=== PATIENT | female | born 1955 | race Caucasian/White ===

== ENCOUNTER → 2017-01-09 | Outpatient (CLI) | payer OTHER ==
--- NOTE | 2017-01-10 09:22 | RAD ---
DATE: 01/09/2017 EXAM: DIGITAL SCREEN BILAT W/CAD HISTORY: Routine screening COMPARISON: 11/28/2015, 03/29/2009 This study was interpreted with the benefit of Computerized Aided Detection (CAD). The breast parenchyma is primarily fatty replaced. Breast parenchyma level density A. FINDINGS: No new or enlarging breast densities are seen. Benign type calcifications are present in both breasts. Two 15 mm lymph nodes are noted in the left axillary region. There appear unchanged since 11/28/2015, although they have enlarged since 03/29/2009. IMPRESSION: There is no mammographic evidence of malignancy in either breast. BI-RADS CATEGORY: 2 BENIGN FINDING(S) RECOMMENDED FOLLOW-UP: 12M 12 MONTH FOLLOW-UP PQRS compliance statement: Patient information was entered into a reminder system with a target due date for the next mammogram. Mammography is a sensitive method for finding small breast cancers, but it does not detect them all and is not a substitute for careful clinical examination. A negative mammogram does not negate a clinically suspicious finding and should not result in delay in biopsying a clinically suspicious abnormality. "Our facility is accredited by the [employer] Mammography [employer]."
== END | disposition home or self-care (01) ==
LOC: MAMMO 14:48
PROVIDERS: ATTEND Family Medicine
DX: Z12.31 Encounter for screening mammogram for malignant neoplasm of breast (principal)
CPT/HCPCS: G0202; 77067

== ENCOUNTER → 2017-08-28 | Day surgery (SDC) | payer OTHER ==
[~2017-08-28] MED LIST: HYDROmorphone 2 MG/ML VIAL IV; LIDOCAINE 1% PF 2 ML VIAL. ID; LIDOCAINE 2% 100 MG/5 ML SYRINGE.; MORPHINE SULFATE 2 MG/ML DISP.SYRIN. IV; ONDANSETRON PF 4 MG/2 ML VIAL. IV; PROCHLORPERAZINE 10 MG/2 ML VIAL. IV; PROPOFOL 40 ML IV; fentaNYL PF VIAL 100 MCG/2 ML VIAL IV
[2017-08-28] MEDS: IV RINGERS,LACTATED 1000ML 1,000 ML IV (09:23)
== END | disposition home or self-care (01) ==
LOC: ENDOS 08:49
DX: K57.30 Diverticulosis of large intestine without perforation or abscess without bleeding (principal); K64.8 Other hemorrhoids; I10 Essential (primary) hypertension; J45.909 Unspecified asthma, uncomplicated; E78.5 Hyperlipidemia, unspecified; F41.8 Other specified anxiety disorders; F32.89 Other specified depressive episodes; M19.90 Unspecified osteoarthritis, unspecified site; Z79.899 Other long term (current) drug therapy; F17.210 Nicotine dependence, cigarettes, uncomplicated; Z90.49 Acquired absence of other specified parts of digestive tract; Z98.890 Other specified postprocedural states
CPT/HCPCS: 45378; J2704

== ENCOUNTER → 2018-03-17 | Outpatient (CLI) | payer OTHER ==
[2017-08-28 10:07] VITALS: BP 113/78
[~2018-03-17] MED LIST changes: +ARIP5TAB13 PO; +ATOR40TA59 PO; +CELE200C PO; +CLON0.5T11 PO; +CYAN10002 IM; +ELUX75TA PO; +ESTR1TAB5 PO; +ESZO3TAB28 PO; +FLUT1DIS IH; +FURO40TA4 PO; +HYDR-971 PO; -HYDROmorphone 2 MG/ML VIAL IV; -LIDOCAINE 1% PF 2 ML VIAL. ID; -LIDOCAINE 2% 100 MG/5 ML SYRINGE.; +MOME17SP NS; +MONT10TA9 PO; -MORPHINE SULFATE 2 MG/ML DISP.SYRIN. IV; +OMEP20TA8 PO; -ONDANSETRON PF 4 MG/2 ML VIAL. IV; +OXYB15TA PO; +POTA10TA12 PO; +PREG75CA PO; -PROCHLORPERAZINE 10 MG/2 ML VIAL. IV; -PROPOFOL 40 ML IV; +TOPI100T42 PO; -fentaNYL PF VIAL 100 MCG/2 ML VIAL IV
--- NOTE | 2018-03-18 09:10 | RAD ---
History: Routine Screening. Technique: Bilateral digital mammographic routine views were obtained with CAD - computer aided detection. Comparison: 05/29/2011, 11/28/2015, 01/09/2017. Findings: Breast Tissue Density A : The breast tissue is predominately fatty replaced. There are no suspicious masses, microcalcifications or areas of architectural distortion. Impression: Negative mammogram. BI-RADS Category 1: Negative. Recommendation: In the absence of new clinical symptoms or change in physical exam, annual screening mammography is recommended. A mammogram does not have 100% sensitivity and therefore a negative imaging study should not delay further work up of a suspicious abnormality. The patient will receive a letter with the results in the mail. Patient information is entered into the reminder system with a target due date for the next screening mammogram. The patient will receive a reminder. "Our facility is accredited by the [employer]."
== END | disposition home or self-care (01) ==
LOC: MAMMO 12:46
PROVIDERS: ATTEND Family Medicine
DX: Z12.31 Encounter for screening mammogram for malignant neoplasm of breast (principal); I10 Essential (primary) hypertension; E78.5 Hyperlipidemia, unspecified; Z87.891 Personal history of nicotine dependence
CPT/HCPCS: 77067

== ENCOUNTER → 2018-08-26 | Outpatient (CLI) | payer OTHER ==
[2017-08-28 10:07] VITALS: BP 113/78
[~2018-08-26] MED LIST changes: +HYDR-3164 PO; -HYDR-971 PO
[2018-08-26 16:09] LABS: BASO # 0.2 x10^3/uL (0.0-0.2); BASO % 1 % (0-3); EOS # 0.9 x10^3/uL (0.0-0.7); EOS % 6 % (0-3); HEMATOCRIT 45.3 % (36.0-47.0); HEMOGLOBIN 15.5 g/dL (12.0-15.5); LYMPH % 20 % (24-48); MEAN CORPUSCULAR HEMOGLOBIN 33 pg (25-35); MEAN CORPUSCULAR HGB CONC 34 g/dL (31-37); MEAN CORPUSCULAR VOLUME 97 fL (79-100); MONO # 0.8 x10^3/uL (0.0-1.1); MONO % 5 % (0-9); NEUT % 68 % (31-73); PLATELET COUNT 191 x10^3/uL (140-400); RED CELL DISTRIBUTION WIDTH 13.3 % (11.5-14.5); WHITE BLOOD COUNT 14.8 x10^3/uL (4.0-11.0)
[2018-08-26 16:38] LABS: ALBUMIN 3.5 g/dL (3.4-5.0); ALBUMIN/GLOBULIN RATIO 0.9 (1.0-1.7); GFR 56.4; POTASSIUM 4.1 mmol/L (3.5-5.1); TOTAL BILIRUBIN 0.2 mg/dL (0.2-1.0); TOTAL PROTEIN 7.4 g/dL (6.4-8.2)
[2018-08-26 16:40] LABS: BARBITURATES NEG (NEG); BENZODIAZEPINES NEG (NEG); CANNABINOIDS NEG (NEG); COCAINE NEG (NEG); METHADONE NEG (NEG); OPIATES POS (NEG); PHENCYCLIDINE NEG (NEG)
[2018-08-26 16:41] LABS: AMPHETAMINE/METHAMPHETAMINE NEG (NEG)
== END | disposition home or self-care (01) ==
LOC: LAB 15:41
PROVIDERS: ATTEND Psychiatry & Neurology Neurology
DX: R47.81 Slurred speech (principal)
CPT/HCPCS: 36415; 80053; 80307; 82607; 84443; 85025; 86038

== ENCOUNTER → 2018-09-10 | Outpatient (CLI) | payer OTHER ==
[2017-08-28 10:07] VITALS: BP 113/78
--- NOTE | 2018-09-16 19:18 | EEG ---
DATE OF SERVICE: 09/10/2018 EEG NUMBER: [id number]. OBJECTIVE: This is a 63-year-old female patient with episodes of slurred speech or seizure-like episodes. EEG was requested to help rule out seizure. METHODS: Twenty electrodes were applied according to the international 10-20 electrode placement system. EKG monitoring, hyperventilation, intermittent photic stimulation, monopolar and bipolar montages are routinely utilized. The record was obtained on a digital system with video monitoring. FINDINGS: 1. Background: The patient was recorded in awake, drowsy and sleep states. The overall background amplitude is 10-20 microvolts. A posterior dominant rhythm of 8-11 Hz is observed. 2. Abnormalities: No specific epileptiform discharge or electrographic seizure is seen. No focal or diffuse slowing. 3. Activation: Hyperventilation was performed with poor efforts. Intermittent photic stimulation was performed with photic driving. No specific epileptiform discharge or electrographic seizure induced by hyperventilation or intermittent photic stimulation. IMPRESSION: This EEG is within the broad normal limits of the study for the awake, drowsy, and sleep states. No focal, lateralizing, specific epileptiform discharge or electrographic seizure is seen. PATO SANCHEZ MD DR: KATHLEEN/simi JOB#: [id number] / [id number] DIAN
== END | disposition home or self-care (01) ==
LOC: RT 10:22
PROVIDERS: ATTEND Psychiatry & Neurology Neurology
DX: R47.81 Slurred speech (principal)
CPT/HCPCS: 95816

== ENCOUNTER 2018-11-10 16:17 | Emergency (ER) | payer OTHER ==
[~2018-11-10] VITALS: Ht 167.6 cm; Wt 117.9 kg
[2018-11-10] MEDS ORDERED: IV NORMAL SALINE 1000ML BAG 1,000 ML IV ONE (16:30)
[2018-11-10] MEDS ORDERED: methylPREDNISolone SOD SUCC PF 125 MG/2 ML VIAL. IV ONE (16:30)
[2018-11-10] MEDS ORDERED: IPRATRPIUM/ALBUTEROL 0.5/2.5MG 3 ML NEBU. NEB ONE (16:30)
[2018-11-10] MEDS ORDERED: NALOXONE 0.4 MG/ML VIAL. ONE (16:36)
[2018-11-10 16:41] LABS: BASO # 0.1 x10^3/uL (0.0-0.2); BASO % 1 % (0-3); EOS # 0.4 x10^3/uL (0.0-0.7); EOS % 5 % (0-3); HEMATOCRIT 44.3 % (36.0-47.0); HEMOGLOBIN 14.4 g/dL (12.0-15.5); LYMPH # 2.3 x10^3/uL (1.0-4.8); LYMPH % 27 % (24-48); MEAN CORPUSCULAR HEMOGLOBIN 32 pg (25-35); MEAN CORPUSCULAR HGB CONC 33 g/dL (31-37); MEAN CORPUSCULAR VOLUME 98 fL (79-100); MONO # 0.7 x10^3/uL (0.0-1.1); MONO % 8 % (0-9); NEUT % 59 % (31-73); PLATELET COUNT 190 x10^3/uL (140-400); RED BLOOD COUNT 4.54 x10^6/uL (3.50-5.40); WHITE BLOOD COUNT 8.5 x10^3/uL (4.0-11.0)
[2018-11-10] MEDS ORDERED: NALOXONE 0.4 MG/ML VIAL. IV ONE (16:45)
[2018-11-10 16:57] LABS: CALCIUM 8.5 mg/dL (8.5-10.1); CREATININE 1.1 mg/dL (0.6-1.0); GFR 50.5; POTASSIUM 3.6 mmol/L (3.5-5.1)
[2018-11-10 17:09] LABS: ALBUMIN 3.1 g/dL (3.4-5.0); ALBUMIN/GLOBULIN RATIO 0.9 (1.0-1.7); TOTAL BILIRUBIN 0.3 mg/dL (0.2-1.0); TOTAL PROTEIN 6.6 g/dL (6.4-8.2)
[2018-11-10 17:22] VITALS: BP 111/69
[2018-11-10] MEDS ORDERED: cefTRIAXone IV Push 1 GM VIAL. IVP ONE (17:30)
--- NOTE | 2018-11-10 17:45 | PHYS DOC ---
Past Medical History Past Medical History: COPD Additional Past Medical Histor: UNABLE TO ASSESS Past Surgical History: Other Additional Past Surgical Histo: UNABLE TO ASSESS Smoking: Cigarettes Alcohol Use: None Drug Use: None Adult General Chief Complaint Chief Complaint: SHORTNESS OF BREATH [facility] HPI Patient is a 63 year old female who presents with complaining of shortness of breath. Patient complaining of chronic shortness of breath that getting worse. Patient complaining of productive cough without fever and chills, chest pain, sick contacts. Patient states she was seen by her primary care physician 3 days ago and he suggested she is coming to the hospital for some test. Patient states she is taking PRN night oxygen. Patient states she took Vicodin this morning for her chronic pain but doesn't know how many pills she took. Patient currently is a smoker. Patient had O2 sat of 75% at room air at arrival to ER. Review of Systems Review of Systems Constitutional: Denies fever or chills [] Eyes: Denies change in visual acuity, redness, or eye pain [] HENT: Denies nasal congestion or sore throat [] Respiratory: Reports cough and shortness of breath Cardiovascular: No additional information not addressed in HPI [] GI: Denies abdominal pain, nausea, vomiting, bloody stools or diarrhea [] : Denies dysuria or hematuria [] Musculoskeletal: Denies back pain or joint pain [] Integument: Denies rash or skin lesions [] Neurologic: Denies headache, focal weakness or sensory changes [] Endocrine: Denies polyuria or polydipsia [] All other systems were reviewed and found to be within normal limits, except as documented in this note. Current Medications Current Medications Current Medications Medications (Trade) Dose Ordered Sig/Jay Start Time Stop Time Status Last Admin Dose Admin Albuterol/ Ipratropium (Duoneb) 3 ml 1X ONCE 11/10/18 16:30 11/10/18 16:33 DC 11/10/18 16:42 3 ML Methylprednisolone Sodium Succinate (SOLU-Medrol 125MG VIAL) 125 mg 1X ONCE 11/10/18 16:30 11/10/18 16:33 DC 11/10/18 16:40 125 MG Naloxone HCl (Narcan) 0.4 mg STK-MED ONCE 11/10/18 16:36 11/10/18 16:37 DC Sodium Chloride 1,000 ml @ 1,000 mls/hr 1X ONCE 4/8/19 16:30 11/10/18 17:29 DC 11/10/18 16:41 1,000 MLS/HR Allergies Allergies Allergies Coded Allergies Type Severity Reaction Last Updated Verified No Known Drug Allergies 08/26/17 No Physical Exam Physical Exam Constitutional: Well nourished, moderate distress, non-toxic appearance. [] HENT: Normocephalic, atraumatic,oropharynx moist. Eyes: PERRLA, EOMI, conjunctiva normal, no discharge. [] Neck: Normal range of motion, no tenderness, supple, no stridor. [] Cardiovascular: Sinus tachycardia, no murmur [] Lungs & Thorax: Moderate respiratory distress with intercostal retractions, bilateral decrease of breath sounds with generalized wheezing and rhonchi Abdomen: Bowel sounds normal, soft, no tenderness, no masses, no pulsatile masses. [] Skin: Warm, dry, no erythema, no rash. [] Back: No tenderness, no CVA tenderness. [] Extremities: No tenderness, no cyanosis, no clubbing, ROM intact, no edema. [] Neurologic: Alert and oriented X 3, mildly somnolent, normal motor function, normal sensory function, no focal deficits noted. [] Psychologic: Affect anxious, judgement normal, mood normal. [] Current Patient Data Vital Signs Vital Signs Date Time Temp Pulse Resp B/P (MAP) Pulse Ox O2 Delivery O2 Flow Rate FiO2 11/10/18 16:17 98.3 112 24 128/64 (85) 77 Room Air 98.3 Lab Values Laboratory Tests Test 11/10/18 16:27 White Blood Count 8.5 x10^3/uL (4.0-11.0) Red Blood Count 4.54 x10^6/uL (3.50-5.40) Hemoglobin 14.4 g/dL (12.0-15.5) Hematocrit 44.3 % (36.0-47.0) Mean Corpuscular Volume 98 fL (79-100) Mean Corpuscular Hemoglobin 32 pg (25-35) Mean Corpuscular Hemoglobin Concent 33 g/dL (31-37) Red Cell Distribution Width 14.0 % (11.5-14.5) Platelet Count 190 x10^3/uL (140-400) Neutrophils (%) (Auto) 59 % (31-73) Lymphocytes (%) (Auto) 27 % (24-48) Monocytes (%) (Auto) 8 % (0-9) Eosinophils (%) (Auto) 5 % (0-3) H Basophils (%) (Auto) 1 % (0-3) Neutrophils # (Auto) 5.0 x10^3uL (1.8-7.7) Lymphocytes # (Auto) 2.3 x10^3/uL (1.0-4.8) Monocytes # (Auto) 0.7 x10^3/uL (0.0-1.1) Eosinophils # (Auto) 0.4 x10^3/uL (0.0-0.7) Basophils # (Auto) 0.1 x10^3/uL (0.0-0.2) Sodium Level 143 mmol/L (136-145) Potassium Level 3.6 mmol/L (3.5-5.1) Chloride Level 106 mmol/L (98-107) Carbon Dioxide Level 26 mmol/L (21-32) Anion Gap 11 (6-14) Blood Urea Nitrogen 10 mg/dL (7-20) Creatinine 1.1 mg/dL (0.6-1.0) H Estimated GFR (Cockcroft-Gault) 50.5 BUN/Creatinine Ratio 9 (6-20) Glucose Level 120 mg/dL (70-99) H Lactic Acid Level 1.5 mmol/L (0.4-2.0) Calcium Level 8.5 mg/dL (8.5-10.1) Total Bilirubin 0.3 mg/dL (0.2-1.0) Aspartate Amino Transferase (AST) 22 U/L (15-37) Alanine Aminotransferase (ALT) 26 U/L (14-59) Alkaline Phosphatase 76 U/L (46-116) Creatine Kinase 58 U/L (26-192) Troponin I Quantitative < 0.017 ng/mL (0.000-0.055) LZ-Zfd-G-Type Natriuretic Peptide 511 pg/mL (0-124) H Total Protein 6.6 g/dL (6.4-8.2) Albumin 3.1 g/dL (3.4-5.0) L Albumin/Globulin Ratio 0.9 (1.0-1.7) L Laboratory Tests 11/10/18 16:27 Laboratory Tests 11/10/18 16:27 EKG EKG EKG interpreted by me. EKG at 1623 shows sinus tachycardia at rate of 106, left atrial abnormalities, no acute ST and T-wave abnormalities. Radiology/Procedures Radiology/Procedures [facility] [address] [place] [address] IMAGING REPORT Signed PATIENT: SUSANNE CASTAÑEDA ACCOUNT: [id number] : 1955 LOCATION: [facility] ICU AGE: 63 SEX: F EXAM STATUS: DIS IN ORD. PHYSICIAN: DINESH QUIÑONEZ MD REASON: shortness of breath PROCEDURE: PORTABLE CHEST 1V PORTABLE CHEST 1V Clinical Indication: ER PATIENT. SHORTNESS OF AIR. Hx COPD. Comparison: AP chest, September 11, 2012. Findings: Cardiac size upper limits of normal. Mild pulmonary vascular congestion. Lungs are clear. There is no pneumothorax. No pleural effusion is appreciated. No acute bone abnormality. IMPRESSION: Cardiac size upper limits of normal. Mild pulmonary vascular congestion. Electronically signed by: Marko Hyde MD (11/10/2018 11:27 PM) [facility] DICTATED and SIGNED BY: MARKO HYDE MD DATE: 11/10/182326 Course & Med Decision Making Course & Med Decision Making Pertinent Labs and Imaging studies reviewed. (See chart for details) Evaluation of patient in ER showed 63-year-old female patient brought in with acute respiratory distress and hypoxia at 75% at room air. Patient was started on nonrebreather facial mask with improvement of O2 sat to 93%. Patient had CO2 of 47 and PO2 of 80 in ABG. Patient treated with IV fluid, DuoNeb, Solu-Medrol and Rocephin with improvement of her condition. Chest x-ray did not show infiltration. Patient had 1 dose of 0.4 mg of Narcan because of taking Vicodin this morning without change of her mental status. She was alert and oriented with mild somnolent. Dr. Swartz primary care physician was informed at 1728 and agreed with admitting patient to ICU but patient refused admission and removed her IV line and left AGAINST MEDICAL ADVICE. Dragon Disclaimer Dragon Disclaimer This electronic medical record was generated, in whole or in part, using a voice recognition dictation system. Departure Departure Impression: Primary Impression: Acute respiratory distress Additional Impressions: COPD exacerbation Left against medical advice Hypoxia Disposition: 07 AGAINST MEDICAL ADVICE (at 1758) Condition: IMPROVED Referrals: Denisha SWARTZ MD (PCP) Critical Care Time Critical care time was 70 minutes exclusive of procedures. Problem Qualifiers DINESH QUIÑONEZ MD Nov 10, 2018 17:45
--- NOTE | 2018-11-10 21:16 | NUR ---
Patient left [facility] from the ER.
--- NOTE | 2018-11-10 23:30 | RAD ---
PORTABLE CHEST 1V Clinical Indication: ER PATIENT. SHORTNESS OF AIR. Hx COPD. Comparison: AP chest, September 11, 2012. Findings: Cardiac size upper limits of normal. Mild pulmonary vascular congestion. Lungs are clear. There is no pneumothorax. No pleural effusion is appreciated. No acute bone abnormality. IMPRESSION: Cardiac size upper limits of normal. Mild pulmonary vascular congestion. Electronically signed by: Marko Hyde MD (11/10/2018 11:27 PM) [facility]
--- NOTE | 2018-11-11 06:39 | EKG ---
[facility] [address] [place] [address] Test Date: 2018-11-10 Test Time: 16:23:04 Pat Name: SUSANNE CASTAÑEDA Department: Room: [facility] Gender: F Glaze Handler: : 1955 Requested By: DINESH QUIÑONEZ Order Number: [id number] Reading MD: Vidal Mason MD Measurements Intervals [place] Rate: 106 P: 57 RI: 144 QRS: 41 QRSD: 84 T: 26 QT: 346 QTc: 461 Interpretive Statements SINUS TACHYCARDIA NON-SPECIFIC ST/T CHANGES Electronically Signed On 11-13-2018 9:49:46 CDT by Vidal Mason MD
== END 2018-11-10 18:13 | disposition left against medical advice (07) ==
LOC: ER 16:17 → 1 WEST ICU 16:37 → UNDOADMIN 16:37 → ER 18:00 → UNDODISIN 18:00 → ER 18:13
DX: J44.1 Chronic obstructive pulmonary disease with (acute) exacerbation (principal); J80 Acute respiratory distress syndrome; F41.9 Anxiety disorder, unspecified
CPT/HCPCS: 36415; 71045; 80053; 82550; 83605; 83880; 84484; 85025; 87040; 93005; 94640; 96374; 96375; 99284; J2310; J2930; J7030; J7620; 99291

== ENCOUNTER 2019-01-15 19:15 | Emergency (ER) | payer OTHER ==
[~2019-01-15] VITALS: Ht 167.6 cm; Wt 112.0 kg
[~2019-01-15 19:15] MED LIST changes: +MONT10TA49 PO; -MONT10TA9 PO
[2019-01-15 19:40] VITALS: BP 112/81
[2019-01-15] MEDS ORDERED: DIPHTH,PERTUSS(ACELL),TET TOX 0.5 ML DISP.SYRIN. VAX IM ONE ×2 (20:13→20:15)
[2019-01-15] MEDS ORDERED: IPRATRPIUM/ALBUTEROL 0.5/2.5MG 3 ML NEBU. NEB ONE (20:15)
[2019-01-15] MEDS ORDERED: methylPREDNISolone SOD SUCC PF 125 MG/2 ML VIAL. IM ONE (20:15)
[2019-01-15] MEDS ORDERED: LIDOCAINE 1% Multi-Dose 20 ML VIAL. INJ ONE (21:15)
--- NOTE | 2019-01-15 21:20 | RAD ---
Left femur radiographs; left knee radiographs History: Fall Comparison: August 24, 2011 left knee radiographs Left femur: 2 views of the left femur are submitted. No proximal left femur fracture is identified. Distal femur was included on the dedicated knee radiographs. There is a small focus of nonspecific sclerosis in the midshaft of left femur. Left knee: 3 views left knee are submitted. There is left total knee arthroplasty, revision from previously. No acute fracture or dislocation is identified. Impression: 1. No acute fracture is identified. There is left total knee arthroplasty. 2. There is a small focus of nonspecific sclerosis of the mid shaft left femur. Electronically signed by: Khang Parikh MD (01/15/2019 9:17 PM) [facility]
[2019-01-15] MEDS ORDERED: CEPH-264 PO (22:21)
--- NOTE | 2019-01-15 22:22 | PHYS DOC ---
Past Medical History Past Medical History: COPD Additional Past Medical Histor: UNABLE TO ASSESS (LEONID CHERY APRN) Past Surgical History: Knee Replacement, Other Additional Past Surgical Histo: UNABLE TO ASSESS (LEONID CHERY APRN) Smoking: Cigarettes, Less than 1pk/day Alcohol Use: None Drug Use: Marijuana (LEONID CHERY APRN) Adult General Chief Complaint Chief Complaint: LACERATION/AVULSION [facility] HPI Patient is a 63 year old female presents after tripping and falling over a piece of rebar while fishing. Happened about 1 hour prior to arrival. The patient has a puncture wound on her left lateral lower extremity above her knee. The patient rates her pain as 6 out of 10 states it is throbbing. No interventions prior to arrival. (LEONID CHERY APRN) Review of Systems Review of Systems Constitutional: Denies fever or chills [] Eyes: Denies change in visual acuity, redness, or eye pain [] HENT: Denies nasal congestion or sore throat [] Respiratory: Denies cough or shortness of breath [] Cardiovascular: No additional information not addressed in HPI [] GI: Denies abdominal pain, nausea, vomiting, bloody stools or diarrhea [] : Denies dysuria or hematuria [] Musculoskeletal: Denies back pain or joint pain with exception of Left lower extremity. Integument: Denies rash or skin lesions with exception of puncture wound. Neurologic: Denies headache, focal weakness or sensory changes [] Endocrine: Denies polyuria or polydipsia [] Complete systems were reviewed and found to be within normal limits, except as documented in this note. (LEONID CHERY APRN) Current Medications Current Medications Current Medications Medications (Trade) Dose Ordered Sig/Jay Start Time Stop Time Status Last Admin Dose Admin Albuterol/ Ipratropium (Duoneb) 3 ml 1X ONCE 01/15/19 20:15 01/15/19 20:20 DC 01/15/19 20:30 3 ML Cephalexin HCl (Keflex) 250 mg STK-MED ONCE 01/15/19 22:30 01/15/19 22:31 DC Diphtheria/ Tetanus/Acell Pertussis (Boostrix) 0.5 ml STK-MED ONCE 01/15/19 20:13 01/15/19 20:14 DC Lidocaine HCl (Lidocaine 1% 20ml Vial) 20 ml 1X ONCE 01/15/19 21:15 01/15/19 21:16 DC 01/15/19 21:15 20 ML Methylprednisolone Sodium Succinate (SOLU-Medrol 125MG VIAL) 125 mg 1X ONCE 01/15/19 20:15 01/15/19 20:20 DC 01/15/19 20:15 125 MG Neomycin/ Polymyxin/ Bacitracin (Triple Antibiotic Ointment) 1 pkt STK-MED ONCE 01/15/19 22:30 01/15/19 22:31 DC (LEONID SOLIS DO) Allergies Allergies Allergies Coded Allergies Type Severity Reaction Last Updated Verified No Known Drug Allergies 08/26/17 No (LEONID SOLIS DO) Physical Exam Physical Exam Constitutional: Well developed, well nourished, no acute distress, non-toxic appearance. [] HENT: Normocephalic, atraumatic, bilateral external ears normal, oropharynx moist, no oral exudates, nose normal. [] Eyes: PERRLA, EOMI, conjunctiva normal, no discharge. [] Neck: Normal range of motion, no tenderness, supple, no stridor. [] Cardiovascular:Heart rate regular rhythm, no murmur [] Lungs & Thorax: Bilateral breath sounds with rhonchi diffusely. Abdomen: Bowel sounds normal, soft, no tenderness, no masses, no pulsatile masses. [] Skin: Warm, dry, no erythema, no rash. Puncture wound approximately 3 cm x 2 cm. Back: No tenderness, no CVA tenderness. [] Extremities: No tenderness, no cyanosis, no clubbing, ROM intact, no edema. [] Neurologic: Alert and oriented X 3, normal motor function, normal sensory function, no focal deficits noted. [] Psychologic: Affect normal, judgement normal, mood normal. [] (LEONID CHERY APRN) Physical Exam Constitutional: Well developed, well nourished, no acute distress Skin: Warm, dry, no erythema, 3cm laceration flap noted to lateral distal thigh (LEONID SOLIS DO) Current Patient Data Vital Signs Vital Signs Date Time Temp Pulse Resp B/P (MAP) Pulse Ox O2 Delivery O2 Flow Rate FiO2 01/15/19 20:34 98 Nasal Cannula 2.0 01/15/19 19:40 98.8 118 21 112/81 (91) 98.8 (SOLIS,LEONID R DO) EKG EKG [] (LEONID CHERY APRN) Radiology/Procedures Radiology/Procedures Indication: [] Procedure: The patient was placed in the appropriate position and anesthesia around the 1% lidocaine was used for anesthesia. The area was then cleansed with 180 mL of normal saline copiously with pressure. The laceration was closed with 4 3-0 sutures loosely. The wound area was then dressed with dressing and Neosporin. Total repaired wound length: 3 cm x 2 cm. The patient tolerated the procedure. Complications: None PATIENT: SUSANNE CASTAÑEDA ACCOUNT: [id number] : 1955 LOCATION: ER AGE: 63 SEX: F EXAM STATUS: REG ER ORD. PHYSICIAN: LEOIND CHERY APRN REASON: fall PROCEDURE: LEFT FEMUR XRAY Left femur radiographs; left knee radiographs History: Fall Comparison: August 24, 2011 left knee radiographs Left femur: 2 views of the left femur are submitted. No proximal left femur fracture is identified. Distal femur was included on the dedicated knee radiographs. There is a small focus of nonspecific sclerosis in the midshaft of left femur. Left knee: 3 views left knee are submitted. There is left total knee arthroplasty, revision from previously. No acute fracture or dislocation is identified. Impression: 1. No acute fracture is identified. There is left total knee arthroplasty. 2. There is a small focus of nonspecific sclerosis of the mid shaft left femur. Electronically signed by: Khang Parikh MD (01/15/2019 9:17 PM) [facility] (LEONID CHERY APRN) Course & Med Decision Making Course & Med Decision Making Pertinent Labs and Imaging studies reviewed. (See chart for details) Patient has history of COPD was having rhonchi in lungs. Will give steroid and breathing treatment. Patient has a puncture wound to the left leg. Will get x- rays and loosely suture the wound together. Will d/c on antibiotic and have nursing staff dressing wound with Neosporin. (LEONID CHERY APRN) Dragon Disclaimer Dragon Disclaimer This electronic medical record was generated, in whole or in part, using a voice recognition dictation system. (LEONID CHERY APRN) Departure Departure Impression: Primary Impression: Laceration Disposition: 01 HOME, SELF-CARE Condition: STABLE Referrals: Denisha SIMPSON MD (PCP) Patient Instructions: Laceration Care, Adult Additional Instructions: Thank you for visiting [facility]. We appreciate you trusting us with your care. If any additional problems come up don't hesitate to return to visit us. Please follow up with your primary care provider so they can plan additional care if needed and know about the problem that you had. If symptoms worsen come back to the Emergency Department. Any concerning symptoms that start such as chest pain, shortness of Air, weakness or numbness on one side of the body, running high fevers or any other concerning symptoms return to the ER. Please keep your wound dry, especially for the first 24 hours. After the first 24 hours you can wet the wound for a short time. Do not soak the wound or swim until the sutures have been removed. Please have the sutures removed in 7 days by your primary care doctor or return to ER for removal. Please keep the wound clean and change your bandage at least twice per day. You can use Neosporin on the wound to help reduce the chance of infection. If you notice signs of infection such as drainage from the wound (Pus), redness, increased pain or swelling return to ER for treatment. Please fill your medications at any pharmacy and follow the prescription instructions. You have been prescribed an antibiotic today to help keep you from getting an infection. Please take all of the antibiotic as directed. Scripts Cephalexin (KEFLEX) 500 Mg Capsule 1 CAP PO BID for 7 Days, #14 CAP Prov: LEONID CHERY APRN 01/15/19 Attending Signature Attending Signature I have personally interviewed and examined the patient. All charts, labs, and im aging studies were reviewed. I agree with the PA/DEALER C[facility] ROOM's findings, exam, and plan. (LEONID SOLIS DO) LEONID CHERY APRN Jan 15, 2019 22:21 LEONID SOLIS DO Jan 16, 2019 03:50
[2019-01-15] MEDS ORDERED: CEPHALEXIN 250 MG CAPSULE. PO ONE (22:30)
[2019-01-15] MEDS ORDERED: NEOMY/BACITR/POLYMYXIN OINT PACKET. TP ONE ×2 (22:30)
[2019-01-15] MEDS ORDERED: CEPHALEXIN 250 MG CAPSULE. ONE (22:30)
== END 2019-01-15 22:51 | disposition home or self-care (01) ==
LOC: ER 19:15
DX: S81.832A Puncture wound without foreign body, left lower leg, initial encounter (principal); J44.9 Chronic obstructive pulmonary disease, unspecified; F17.210 Nicotine dependence, cigarettes, uncomplicated; Z96.652 Presence of left artificial knee joint; Y28.8XXA Contact with other sharp object, undetermined intent, initial encounter; Y93.89 Activity, other specified; Y92.89 Other specified places as the place of occurrence of the external cause; Y99.8 Other external cause status
CPT/HCPCS: 12002; 73552; 73562; 90471; 90715; 94640; 96372; 99284; J2930; J7620

== ENCOUNTER → 2019-04-13 | Outpatient (CLI) | payer MEDICAID, OTHER ==
[~2019-04-13] MED LIST changes: +CEPH-264 PO; +CLON-77 PO; -CLON0.5T11 PO
--- NOTE | 2019-04-13 12:41 | RAD ---
DATE: 04/13/2019 EXAM: DIGITAL SCREEN BILAT W/CAD HISTORY: Routine screening COMPARISON: 01/09/2017 and 03/17/2018 mammographic exams This study was interpreted with the benefit of Computerized Aided Detection (CAD). Breast Density: SCATTERED The breast parenchyma shows scattered fibroglandular densities. Breast parenchyma level B. FINDINGS: Benign-appearing left axillary lymph nodes are present. No masses or distortion. No suspicious calcifications. IMPRESSION: Stable. BI-RADS CATEGORY: 1 NEGATIVE RECOMMENDED FOLLOW-UP: 12M 12 MONTH FOLLOW-UP PQRS compliance statement: Patient information was entered into a reminder system with a target due date in one year for the next mammogram. Mammography is a sensitive method for finding small breast cancers, but it does not detect them all and is not a substitute for careful clinical examination. A negative mammogram does not negate a clinically suspicious finding and should not result in delay in biopsying a clinically suspicious abnormality. "Our facility is accredited by the [employer] Mammography Program."
== END | disposition home or self-care (01) ==
LOC: MAMMO 11:07
PROVIDERS: ATTEND Obstetrics & Gynecology
DX: Z12.31 Encounter for screening mammogram for malignant neoplasm of breast (principal)
CPT/HCPCS: 77067